=== PATIENT | male | born 1980 | race Caucasian/White ===

== ENCOUNTER 2021-04-20 08:38 | Outpatient (CLI) | payer SELFPAY ==
[2021-04-21 14:51] LABS: Coronavirus Test Green County Not Detected
== END 2021-04-20 08:39 | disposition home or self-care (01) ==
LOC: LAB 08:40
PROVIDERS: Visit Provider Family Medicine
DX: J06.9 Acute upper respiratory infection, unspecified (principal); Z20.822 Contact with and (suspected) exposure to COVID-19
CPT/HCPCS: 87635